=== PATIENT | female | born 1975 | race Caucasian/White ===

== ENCOUNTER 2017-07-15 18:46 | Emergency (ER) | payer SELFPAY ==
[~2017-07-15] VITALS: Ht 160 cm; Wt 63.5 kg
[~2017-07-15 18:46] MED LIST: CLON1TAB
[2017-07-15 18:50] VITALS: BP 143/97
[2017-07-15] MEDS ORDERED: IBUP800T19 PO (19:05)
[2017-07-15] MEDS ORDERED: HYDR-971 PO (19:05)
[2017-07-15] MEDS ORDERED: CLIN300C8 PO (19:05)
--- NOTE | 2017-07-15 19:10 | PHYS DOC ---
General Chief Complaint: DENTAL PROBLEM Stated Complaint: DENTAL PAIN Time Seen by MD: 18:57 Source: patient Exam Limitations: no limitations Problems: History of Present Illness Initial Comments Patient is a 42-year-old female who comes to the ED complaining of dental pain. Patient has multiple broken teeth and extensive dental caries she does not follow with a dentist. She states over the past few days she's had worsening pain and side describes it as sharp and severe throbbing. She denies any fever vomiting malaise next if this headache or other evidence of systemic illness. Esrk-[id number]-[id number] medications are not working the patient continues to smoke cigarettes and her vital signs are stable. Timing/Duration: last week Severity: severe Location: dental Prearrival Treatment: over the counter meds Modifying Factors: improves with other Associated Symptoms: tooth pain Allergies: Coded Allergies: Penicillins (Verified Allergy, Intermediate, Swelling, 08/31/13) SWELLING Past Medical History Medical History: no pertinent history Surgical History: noncontributory Family History Significant Family History: no pertinent family hx Social History Smoker: cigarettes Alcohol: rarely Drugs: marijuana Constitutional: denies chills, denies diaphoresis, denies fever, denies malaise Ears: denies dizziness, denies pain Nose: denies clots, denies congestion, denies epistaxis Mouth: see HPI Throat: denies neck stiffness, denies painful swallowing, denies difficulty with fluids Respiratory: denies cough, denies shortness of breath Cardiovascular: denies palpitations, denies syncope Gastrointestinal: denies nausea, denies vomiting Musculoskeletal: denies back pain, denies joint swelling, denies neck pain Neurological: denies headache, denies numbness, denies paresthesia Physical Exam General Appearance: mild distress (disheveled appears older than stated age) Eyes: bilateral eye normal inspection, bilateral eye PERRL, bilateral eye EOMI Nose: normal inspection Mouth/Throat: other (extensive dental caries with multiple broken teeth consistent with meth mouth, there is some gingival swelling and tenderness no bony tenderness no purulent) Neck: non-tender, supple, trachea midline Cardiovascular/Respiratory: normal peripheral pulses, normal breath sounds Neurologic/Psychiatric: grade recorder II-XII nml as tested, no motor/sensory deficits, alert, normal mood/affect, oriented x 3 Skin: normal color, warm/dry Orders, Labs, Meds Patient was advised to discontinue substance abuse and that she must follow-up with a dentist. Departure Time of Disposition: 19:06 Disposition: 01 HOME, SELF-CARE Diagnosis: dental abscess, tobaccoism Condition: GOOD Patient Instructions: Dental Abscess, Smoking Cessation, Tips For Success Additional Instructions: Stop smoking, seek medical assistance if necessary. Listerine gargles three times daily after brushing/flossing. Rx: ibuprofen 800mg, clindamycin, norco 5mg #20 Take meds with food. Take stool softeners and increase fluids to avoid constipation. As discussed, you must follow up with a dentist to resolve this condition. The ED will not refill medications for chronic conditions for which no other definitive treatment is sought. As discussed, you may consider [facility] or [facility] resources, call tomorrow morning. Return to ED with new or changing symptoms. RADHA POTTER DO Jul 15, 2017 19:10
[2017-07-15] MEDS ORDERED: ONDANSETRON ODT 4 MG TAB.RAPDIS PO ONE (19:15)
[2017-07-15] MEDS ORDERED: CLINDAMYCIN HCL 150 MG CAPSULE PO ONE (19:15)
[2017-07-15] MEDS ORDERED: HYDROcodon/IBUPROFEN 7.5/200MG 1 TAB TABLET PO ONE (19:15)
== END 2017-07-15 19:25 | disposition home or self-care (01) ==
LOC: ER 18:46
DX: K04.7 Periapical abscess without sinus (principal); F17.210 Nicotine dependence, cigarettes, uncomplicated; F12.10 Cannabis abuse, uncomplicated; Z88.0 Allergy status to penicillin
CPT/HCPCS: 99284; Q0162